=== PATIENT | male | born 1995 | race Caucasian/White ===

== ENCOUNTER 2017-01-14 12:24 | Emergency (ER) | payer OTHER ==
[~2017-01-14] VITALS: Ht 180.3 cm; Wt 134.5 kg
[2017-01-14 12:27] VITALS: Ht 180.3 cm; Wt 134.5 kg
[2017-01-14] MEDS ORDERED: AMO500 PO (12:49)
[2017-01-14] MEDS ORDERED: NAPR-688 PO (12:50)
--- NOTE | 2017-01-14 12:52 | ERD ---
ER Documentation Chief Complaint Date/Time DATE: 01/14/17 TIME: 12:51 Chief Complaint SORE THROAT SINCE YESTERDAY. COUGHING NO CONGESTION . NO FEVERS HPI This 21-year-old male presents with throat pain 2 days. It is increasing. He has no cough. He has a tender bump in his neck. He has not had any fevers yet. He is otherwise healthy. ROS All systems reviewed and are negative except as per history of present illness. Medications Home Meds Active Scripts Naproxen* (Naproxen*) 500 Mg Tablet, 500 MG PO BID Y for PAIN, #20 TAB Prov:OSKAR EASTON DO 01/14/17 Amoxicillin* (Amoxicillin*) 500 Mg Cap, 500 MG PO TID for 10 Days, CAP Prov:OSKAR EASTON DO 01/14/17 Allergies Allergies: Coded Allergies: No Known Allergy (Unverified , 06/28/12) PMhx/Soc Medical and Surgical Hx: pt denies Surgical Hx History of Surgery: No Anesthesia Reaction: No Hx Neurological Disorder: No Hx Respiratory Disorders: No Hx Cardiac Disorders: No Hx Psychiatric Problems: No Hx Miscellaneous Medical Probl: Yes (Hx of hematuria) Hx Alcohol Use: No Hx Substance Use: No Hx Tobacco Use: No Smoking Status: Never smoker Physical Exam Vitals Vital Signs Date Time Temp Pulse Resp B/P Pulse Ox O2 Delivery O2 Flow Rate FiO2 01/14/17 12:27 98.6 94 20 154/97 98 Physical Exam Const: [] Head: Atraumatic Eyes: Normal Conjunctiva ENT: Normal External Ears, Nose and Mouth. Tympanic membranes clear bilaterally. Oropharynx with mild bilateral tonsillar swelling, erythema, exudate on right tonsil. No unilateral swelling. Uvula is not deviated. Neck: Full range of motion..~Tender left anterior cervical 1 cm lymph node. Procedures/MDM 3 out of 4 Cent[facility] criteria with apparent strep pharyngitis. No concern for tonsillar abscess. Discharging with amoxicillin and naproxen and primary care follow-up in 2-3 days. Departure Diagnosis: Primary Impression: Strep pharyngitis Condition: Stable Patient Instructions: Pharyngitis, Strep (Presumed) Additional Instructions: Call your primary care doctor TOMORROW for an appointment during the next 2-3 days.See the doctor sooner or return here if your condition worsens before your appointment time. OSKAR EASTON DO January 14, 2017 12:52
[2017-01-14 13:11] VITALS: BP 135/68; PULSE 77; RESP 18; TEMP 98
== END 2017-01-14 13:12 | disposition home or self-care (01) ==
LOC: FTE 12:24
DX: J02.0 Streptococcal pharyngitis (principal)
CPT/HCPCS: 99283

== ENCOUNTER 2017-11-14 22:17 | Emergency (ER) | END 2017-11-15 04:10 | disposition home or self-care (01) ==